=== PATIENT | female | born 1975 | race Two or more races ===

== ENCOUNTER 2020-09-26 18:59 | Emergency (ER) | payer MEDICARE, OTHER ==
[~2020-09-26] VITALS: Ht 162.6 cm; Wt 68.0 kg
[2020-09-26] MEDS ORDERED: TDAP [DIPH/PERTUSSIS/TET] 0.5 ML VIAL IM ONE ×2 (19:30→19:36)
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
[2020-09-26] MEDS ORDERED: LIDOCAINE 1%-EPI 1:100,000 20 ML VIAL ONE (20:06)
--- NOTE | 2020-09-26 20:40 | NUR ---
CALLED [facility], PT EMERGENCY CONTACT TO HAVE PT GET PICKED UP. PT'S FAMILY IS UNABLE TO MANUFACTURING PLANNER PT. AWARE.
[2020-09-26] MEDS ORDERED: LORAZEPAM INJ 2 MG/ML VIAL ONE (20:56)
[2020-09-26] MEDS ORDERED: LORAZEPAM INJ 2 MG/ML VIAL IM ONE (21:00)
[2020-09-26 22:20] LABS: BILIRUBIN,URINE NEGATIVE (NEGATIVE); COLOR,URINE YELLOW (YELLOW); LEUKOCYTE ESTERASE ,URINE TRACE (NEGATIVE); NITRITE, URINE NEGATIVE (NEGATIVE); PROTEIN,URINE NEGATIVE (NEGATIVE); UGLUCOSE NEGATIVE (NEGATIVE); UROBILINOGEN,URINE 0.2 EU/dL (0.2)
[2020-09-26 22:34] LABS: BASOPHILS # (AUTO) 0.1 /CMM (0.0-0.2); BASOPHILS % (AUTO) 0.7 % (0.0-2.0); EOSINOPHILS % (AUTO) 1.3 % (0.0-6.0); HEMATOCRIT 39 % (33-45); HEMOGLOBIN 12.7 g/dL (11.5-14.8); LYMPHOCYTES # (AUTO) 2.5 /CMM (0.8-4.8); MEAN CORPUSCULAR HGB CONC 33 g/dl (31.0-36.0); MEAN CORPUSCULAR VOLUME 95 fL (82-100); MONOCYTES # (AUTO) 0.8 /CMM (0.1-1.30); MONOCYTES % (AUTO) 8.8 % (2.0-12.0); NEUTROPHILS # (AUTO) 5.8 /CMM (1.8-8.9); NEUTROPHILS % (AUTO) 62.2 % (43.0-81.0); PLATELET COUNT (AUTO) 290 /CMM (150-450); RED BLOOD CELL COUNT(AUTO) 4.07 MIL/uL (4.0-5.2); WHITE BLOOD COUNT (AUTO) 9.4 K/uL (4.3-11.0)
[2020-09-26] MEDS ORDERED: IBUPROFEN 600 MG TABLET ONE (22:41)
[2020-09-26 22:44] LABS: BACTERIA,URINE Moderate /HPF (None Seen); RBC,URINE 0-2 /HPF (0-2); SQUAMOUS EPITHELIAL CELL,UR Many /HPF (None Seen)
--- NOTE | 2020-09-26 22:51 | NUR ---
PT IN BED RESTING. EASILY ARROUSABLE.
[2020-09-26 22:53] LABS: CALCIUM, SERUM 8.7 mg/dL (8.5-10.1); CREATININE 0.7 mg/dL (0.6-1.3); POTASSIUM 3.9 mmol/L (3.5-5.1)
[2020-09-26 22:58] LABS: ALBUMIN 3.4 g/dL (3.4-5.0); BILIRUBIN,DIRECT 0.1 mg/dL (0.0-0.2); BILIRUBIN,TOTAL 0.2 mg/dL (0.2-1.0); TOTAL PROTEIN, SERUM 7.1 g/dL (6.4-8.2)
[2020-09-26] MEDS ORDERED: IBUPROFEN 600 MG TABLET PO ONE (23:00)
--- NOTE | 2020-09-26 23:18 | NUR ---
Call from lab. Rapid covid negative.
--- NOTE | 2020-09-26 23:21 | NUR ---
CALLED [employer] OPERATOR [facility]IA[facility], STATES ON HIS WAY
--- NOTE | 2020-09-27 00:18 | NUR ---
ART, WELCOME CENTER AGENT, AT BED SIDE
--- NOTE | 2020-09-27 00:49 | NUR ---
PT IS CLEAR FOR D/C PER MD AND DISTRICT MANAGER. PT A, OX4 AND AMBULATORY WITH STEADY GAITS. REPORTED FEELING BETTER AND WILLING TO LEAVE. LFA LACERATION WITH INTACT SURURES WERE COVERED WITH DRESSING. Patient discharged to home in stable condition. Written and verbal after care instructions given. Patient verbalizes understanding of instruction.
[2020-09-27 00:54] VITALS: BP 127/76
== END 2020-09-27 00:54 | disposition home or self-care (01) ==
LOC: ER 19:01
DX: S51.811A Laceration without foreign body of right forearm, initial encounter (principal); W25.XXXA Contact with sharp glass, initial encounter; Y92.89 Other specified places as the place of occurrence of the external cause; F10.129 Alcohol abuse with intoxication, unspecified; Y90.3 Blood alcohol level of 60-79 mg/100 ml; Z20.822 Contact with and (suspected) exposure to COVID-19
CPT/HCPCS: 12002; 36415; 73090; 80048; 80076; 80299; 80307; 80320; 81001; 84703; 85025; 87086; 87426; 90471; 90715; 96372; 99284; J2060; J3490; C9803; G0480